=== PATIENT | female | born 1965 | race Caucasian/White ===

== ENCOUNTER 2016-11-27 11:23 | Emergency (ER) | payer MEDICARE ==
[2016-11-27 12:21] LABS: BASOPHILS 0.3 % (0.0-2.0); EOSINOPHILS 6.4 % (0-7); HEMATOCRIT 33.3 % (36.0-48.0); HEMOGLOBIN 10.6 g/dL (12-16); IMMATURE GRANULOCYTES 0.4 % (0-5); LYMPHOCYTES 21.1 % (15-50); MCH 28.8 pg (26.0-34.0); MCHC 31.8 g/dL (31.0-37.0); MCV 90.5 fL (80.0-100.0); MEAN PLATELET VOLUME 9.6 fL (7.4-10.4); MONOCYTES 7.9 % (2-11); NEUTROPHILS 63.9 % (40-80); PLATELET COUNT 343 10x3/uL (130-400); RBC 3.68 10x6/uL (4.00-5.40); RDW 14.2 % (11.5-14.5)
== END 2016-11-27 12:30 | disposition home or self-care (01) ==
LOC: D.ER 11:23
PROVIDERS: Emergency Medicine
DX: T81.4XXA Infection following a procedure, initial encounter (principal); C80.1 Malignant (primary) neoplasm, unspecified; E11.9 Type 2 diabetes mellitus without complications; I10 Essential (primary) hypertension; F17.200 Nicotine dependence, unspecified, uncomplicated

== ENCOUNTER → 2016-12-30 16:23 | Outpatient (CLI) | payer MEDICARE ==
[2016-12-30 17:11] LABS: BASOPHILS 0.3 % (0.0-2.0); EOSINOPHILS 18.8 % (0-7); HEMATOCRIT 24.2 % (36.0-48.0); IMMATURE GRANULOCYTES 0.1 % (0-5); LYMPHOCYTES 23.3 % (15-50); MCH 26.8 pg (26.0-34.0); MCHC 29.8 g/dL (31.0-37.0); MEAN PLATELET VOLUME 9.4 fL (7.4-10.4); NEUTROPHILS 49.5 % (40-80); RBC 2.69 10x6/uL (4.00-5.40); RDW 15.4 % (11.5-14.5); WBC 8.6 10x3/uL (4.8-10.8)
[2016-12-30 17:12] LABS: PLATELET COUNT 417 10x3/uL (130-400)
[2016-12-30 17:16] LABS: CREATININE - SERUM 0.9 mg/dL (0.6-1.3); HEMOGLOBIN 7.2 g/dL (12-16)
== END | disposition home or self-care (01) ==
LOC: D.LABREF 16:23
PROVIDERS: Student in an Organized Health Care Education/Training Program
DX: T81.4XXA Infection following a procedure, initial encounter (principal); T81.31XA Disruption of external operation (surgical) wound, not elsewhere classified, initial encounter

== ENCOUNTER 2017-01-19 06:33 | Emergency (ER) | payer MEDICARE ==
[2017-01-19 08:16] LABS: BASOPHILS 0.3 % (0.0-2.0); EOSINOPHILS 11.3 % (0-7); HEMATOCRIT 29.5 % (36.0-48.0); HEMOGLOBIN 9.1 g/dL (12-16); IMMATURE GRANULOCYTES 0.3 % (0-5); LYMPHOCYTES 20.5 % (15-50); MCH 27.4 pg (26.0-34.0); MCHC 30.8 g/dL (31.0-37.0); MCV 88.9 fL (80.0-100.0); MEAN PLATELET VOLUME 10.2 fL (7.4-10.4); MONOCYTES 12.2 % (2-11); NEUTROPHILS 55.4 % (40-80); RBC 3.32 10x6/uL (4.00-5.40); RDW 16.4 % (11.5-14.5)
[2017-01-19 08:17] LABS: PLATELET COUNT 155 10x3/uL (130-400)
[2017-01-19 08:21] LABS: ALBUMIN 2.9 g/dL (3.4-5.0); ALKALINE PHOSPHATASE 120 U/L (46-116); ALT (SGPT) 21 U/L (10-68); BILIRUBIN - TOTAL 0.32 mg/dL (0.2-1.3); CALC OSMOLALITY 279 mosm/kg (275-300); CALCIUM 8.9 mg/dL (8.5-10.1); CARBON DIOXIDE 29.5 mmol/L (21.0-32.0); CHLORIDE - SERUM 102 mmol/L (98-107); CREATININE - SERUM 0.7 mg/dL (0.6-1.3); GLUCOSE 145 mg/dL (74-106); POTASSIUM - SERUM 4.4 mmol/L (3.5-5.1); PROTEIN - SERUM 6.8 g/dL (6.4-8.2); SODIUM 139 mmol/L (136-145); UREA NITROGEN 10 mg/dL (7-18); eGFR NON AFRICAN AMERICAN > 90 mL/min (90-120)
[2017-01-25 16:12] LABS: AEROBE ID Final report (())
== END 2017-01-19 12:30 | disposition home or self-care (01) ==
LOC: D.ER 06:33
PROVIDERS: Emergency Medicine
DX: G89.18 Other acute postprocedural pain (principal); E11.9 Type 2 diabetes mellitus without complications; I10 Essential (primary) hypertension

== ENCOUNTER 2017-01-28 11:14 | Emergency (ER) | payer MEDICARE ==
[2017-01-28 13:24] LABS: APPEARANCE CLEAR (CLEAR); BILIRUBIN NEGATIVE (NEGATIVE); COLOR YELLOW (YELLOW); GLUCOSE NEGATIVE (NEGATIVE); KETONE NEGATIVE (NEGATIVE); LEUKOCYTE ESTERASE NEGATIVE (NEGATIVE); NITRITE NEGATIVE (NEGATIVE); PROTEIN NEGATIVE (NEGATIVE); UROBILINOGEN NORMAL (NORMAL)
[2017-01-28 13:33] LABS: BASOPHILS 0.5 % (0.0-2.0); EOSINOPHILS 9.1 % (0-7); HEMOGLOBIN 8.3 g/dL (12-16); IMMATURE GRANULOCYTES 0.2 % (0-5); LYMPHOCYTES 17.5 % (15-50); MCH 27.1 pg (26.0-34.0); MCHC 30.7 g/dL (31.0-37.0); MCV 88.2 fL (80.0-100.0); MEAN PLATELET VOLUME 8.2 fL (7.4-10.4); MONOCYTES 9.1 % (2-11); NEUTROPHILS 63.6 % (40-80); RBC 3.06 10x6/uL (4.00-5.40); RDW 16.8 % (11.5-14.5); WBC 6.6 10x3/uL (4.8-10.8)
[2017-01-28 13:46] LABS: PLATELET COUNT 378 10x3/uL (130-400)
[2017-01-28 14:00] LABS: ALBUMIN 2.5 g/dL (3.4-5.0); ALKALINE PHOSPHATASE 129 U/L (46-116); ALT (SGPT) 18 U/L (10-68); CALC OSMOLALITY 278 mosm/kg (275-300); CALCIUM 8.8 mg/dL (8.5-10.1); CARBON DIOXIDE 30.7 mmol/L (21.0-32.0); CHLORIDE - SERUM 101 mmol/L (98-107); CREATININE - SERUM 0.8 mg/dL (0.6-1.3); GLUCOSE 135 mg/dL (74-106); POTASSIUM - SERUM 3.8 mmol/L (3.5-5.1); PROTEIN - SERUM 7.1 g/dL (6.4-8.2); SODIUM 139 mmol/L (136-145); UREA NITROGEN 9 mg/dL (7-18); eGFR NON AFRICAN AMERICAN 80 mL/min (90-120)
[2017-02-04 16:14] LABS: AEROBE ID Final report (())
== END 2017-01-28 18:46 | disposition home or self-care (01) ==
LOC: D.ER 11:14
PROVIDERS: Emergency Medicine; Physician Assistant
DX: G89.18 Other acute postprocedural pain (principal); T81.31XA Disruption of external operation (surgical) wound, not elsewhere classified, initial encounter; E11.9 Type 2 diabetes mellitus without complications; D64.9 Anemia, unspecified; Z85.89 Personal history of malignant neoplasm of other organs and systems; I10 Essential (primary) hypertension

== ENCOUNTER 2019-07-10 10:53 | Outpatient (CLI) | payer MEDICARE ==
[~2019-07-10] VITALS: Ht 170.2 cm; Wt 113.6 kg
[2019-07-10 12:38] VITALS: BP 114/62; Ht 170.2 cm; Wt 113.6 kg
--- NOTE | 2019-07-10 16:50 | NUR ---
PT DC INSTRUCTIONS REVIEWED AT THIS TIME, PT VERBALIZES UNDERSTANDING. [facility] CALLED AT THIS TIME TO [facility]. [facility] STATE THAT THEY WILL BE HERE IN ABOUT 30 MINUTES.
== END 2019-07-10 17:42 ==
LOC: D.OPS 10:53
PROVIDERS: ATTEND Family Medicine
DX: D64.9 Anemia, unspecified (principal); Z51.81 Encounter for therapeutic drug level monitoring; Z79.2 Long term (current) use of antibiotics

== ENCOUNTER 2019-08-02 10:54 | Emergency (ER) | payer MEDICARE ==
[~2019-08-02] VITALS: Ht 170.2 cm; Wt 119.1 kg
[2019-08-02 10:56] VITALS: Ht 170.2 cm; Wt 119.1 kg
[2019-08-02] MEDS ORDERED: MS CONTIN30 MG PO (10:57)
[2019-08-02] MEDS ORDERED: METHADONE5 MG PO (10:57)
[2019-08-02] MEDS ORDERED: KLONOPIN1 MG PO (10:58)
[2019-08-02] MEDS ORDERED: IBUPROFEN800 MG PO (10:58)
[2019-08-02] MEDS ORDERED: ZOFRAN8 MG PO (10:59)
[2019-08-02] MEDS ORDERED: MORPHINE IMMEDI30 M1 PO (10:59)
[2019-08-02] MEDS ORDERED: OMEPRAZOLE40 MG PO (10:59)
[2019-08-02] MEDS ORDERED: MORPHINE SULFAT15 M4 PO (10:59)
[2019-08-02] MEDS ORDERED: NEURONTIN 300300 MG PO (10:59)
[2019-08-02] MEDS ORDERED: ZOLOFT100 MG PO (11:00)
[2019-08-02] MEDS ORDERED: BACLOFEN10 MG PO (11:00)
[2019-08-02] MEDS ORDERED: PHENERGAN25 M1 PO (11:00)
[2019-08-02] MEDS ORDERED: LIPITOR10 MG PO (11:00)
[2019-08-02] MEDS ORDERED: ABILIFY2 MG PO (11:00)
[2019-08-02] MEDS ORDERED: LAMICTAL150 M1 PO (11:01)
[2019-08-02] MEDS ORDERED: WELLBUTRIN SR150 MG PO (11:01)
[2019-08-02 11:50] LABS: BASOPHILS 0.1 % (0-2); EOSINOPHILS 0 % (0-7); HEMATOCRIT 29.6 % (36.0-48.0); HEMOGLOBIN 9.6 g/dL (12-16); IMMATURE GRANULOCYTES 0.2 % (0-5); LYMPHOCYTES 6.8 % (15-50); MCH 26.9 pg (26.0-34.0); MCHC 32.4 g/dL (31.0-37.0); MCV 82.9 fL (80.0-100.0); MONOCYTES 4.5 % (2-11); NEUTROPHILS 88.4 % (40-80); PLATELET COUNT 352 10x3/uL (130-400); RBC 3.57 10x6/uL (4.00-5.40); WBC 8.9 10x3/uL (4.8-10.8)
[2019-08-02 12:02] LABS: ALKALINE PHOSPHATASE 118 U/L (46-116); ALT (SGPT) 13 U/L (10-68); CALC OSMOLALITY 282 mosm/kg (275-300); CARBON DIOXIDE 31.3 mmol/L (21.0-32.0); CHLORIDE - SERUM 103 mmol/L (98-107); CREATININE - SERUM 0.6 mg/dL (0.6-1.3); GLUCOSE 155 mg/dL (74-106); POTASSIUM - SERUM 3.9 mmol/L (3.5-5.1); PROTEIN - SERUM 6.9 g/dL (6.4-8.2); SODIUM 141 mmol/L (136-145); UREA NITROGEN 10 mg/dL (7-18); eGFR NON AFRICAN AMERICAN > 90 mL/min (90-120)
[2019-08-02 12:05] LABS: APPEARANCE CLEAR (CLEAR); BACTERIA MODERATE /hpf (NEGATIVE); BILIRUBIN NEGATIVE (NEGATIVE); COLOR YELLOW (YELLOW); EPITHELIAL CELLS 0-5 /hpf (0-5); GLUCOSE NEGATIVE (NEGATIVE); KETONE LARGE mg/dL (NEGATIVE); MUCUS <1+ /lpf (NONE SEEN); NITRITE NEGATIVE (NEGATIVE); PROTEIN NEGATIVE (NEGATIVE); SPECIFIC GRAVITY 1.005 (1.005-1.020); UROBILINOGEN NORMAL (NORMAL); WHITE CELLS - URINE 0-5 /hpf (NEGATIVE)
[2019-08-02] MEDS ORDERED: LEVAQUIN750 MG PO (14:26)
[2019-08-02 15:25] VITALS: BP 116/82
== END 2019-08-02 15:47 | disposition home or self-care (01) ==
LOC: D.ER 10:54
PROVIDERS: Emergency Medicine
DX: M86.60 Other chronic osteomyelitis, unspecified site (principal); E11.9 Type 2 diabetes mellitus without complications; K21.9 Gastro-esophageal reflux disease without esophagitis

== ENCOUNTER → 2019-08-05 10:24 | Outpatient (CLI) | payer MEDICARE ==
[2019-08-02 10:56] VITALS: BMI 41.1
[~2019-08-05 10:24] MED LIST: ABILIFY2 MG PO; BACLOFEN10 MG PO; IBUPROFEN800 MG PO; KLONOPIN1 MG PO; LAMICTAL150 M1 PO; LEVAQUIN750 MG PO; LIPITOR10 MG PO; METHADONE5 MG PO; MORPHINE IMMEDI30 M1 PO; MORPHINE SULFAT15 M4 PO; MS CONTIN30 MG PO; NEURONTIN 300300 MG PO; OMEPRAZOLE40 MG PO; PHENERGAN25 M1 PO; WELLBUTRIN SR150 MG PO; ZOFRAN8 MG PO; ZOLOFT100 MG PO
[2019-08-05 11:26] LABS: BASOPHILS 0.2 % (0-2); EOSINOPHILS 1.6 % (0-7); HEMATOCRIT 35.4 % (36.0-48.0); HEMOGLOBIN 11.8 g/dL (12-16); IMMATURE GRANULOCYTES 0.2 % (0-5); LYMPHOCYTES 19.8 % (15-50); MCH 27.4 pg (26.0-34.0); MCHC 33.3 g/dL (31.0-37.0); MCV 82.1 fL (80.0-100.0); MEAN PLATELET VOLUME 9.5 fL (7.4-10.4); MONOCYTES 11.6 % (2-11); NEUTROPHILS 66.6 % (40-80); PLATELET COUNT 405 10x3/uL (130-400); RBC 4.31 10x6/uL (4.00-5.40); RDW 16.3 % (11.5-14.5); WBC 11.5 10x3/uL (4.8-10.8)
[2019-08-05 11:50] LABS: ANION GAP 12.1 mmol/L (8-16); CALCIUM 8.8 mg/dL (8.5-10.1); CARBON DIOXIDE 29.3 mmol/L (21.0-32.0); CREATININE - SERUM 0.9 mg/dL (0.6-1.3); VANCOMYCIN - TROUGH 14.9 ug/mL (10.0-20.0)
[2019-08-05 12:02] LABS: POTASSIUM - SERUM 2.4 mmol/L (3.5-5.1)
== END | disposition home or self-care (01) ==
LOC: D.LABREF 10:24
PROVIDERS: ATTEND Internal Medicine Infectious Disease
DX: B95.62 Methicillin resistant Staphylococcus aureus infection as the cause of diseases classified elsewhere (principal)

== ENCOUNTER → 2019-08-06 10:26 | Outpatient (CLI) | payer MEDICARE ==
[2019-08-02 10:56] VITALS: BMI 41.1
[2019-08-06 11:20] LABS: BASOPHILS 0.2 % (0-2); EOSINOPHILS 5.8 % (0-7); HEMATOCRIT 32.4 % (36.0-48.0); HEMOGLOBIN 10.5 g/dL (12-16); IMMATURE GRANULOCYTES 0.3 % (0-5); LYMPHOCYTES 15.7 % (15-50); MCHC 32.4 g/dL (31.0-37.0); MCV 83.3 fL (80.0-100.0); MEAN PLATELET VOLUME 9.9 fL (7.4-10.4); MONOCYTES 8.8 % (2-11); NEUTROPHILS 69.2 % (40-80); PLATELET COUNT 365 10x3/uL (130-400); RBC 3.89 10x6/uL (4.00-5.40); RDW 16.4 % (11.5-14.5); WBC 9.4 10x3/uL (4.8-10.8)
[2019-08-06 11:29] LABS: CALC OSMOLALITY 285 mosm/kg (275-300); CALCIUM 8.9 mg/dL (8.5-10.1); CARBON DIOXIDE 30.4 mmol/L (21.0-32.0); CHLORIDE - SERUM 102 mmol/L (98-107); CREATININE - SERUM 0.8 mg/dL (0.6-1.3); GLUCOSE 150 mg/dL (74-106); SODIUM 141 mmol/L (136-145); UREA NITROGEN 17 mg/dL (7-18); VANCOMYCIN - TROUGH 20.4 ug/mL (10.0-20.0); eGFR NON AFRICAN AMERICAN 79 mL/min (90-120)
[2019-08-06 11:33] LABS: POTASSIUM - SERUM 2.9 mmol/L (3.5-5.1)
== END | disposition home or self-care (01) ==
LOC: D.LABREF 10:26
PROVIDERS: ATTEND Family Medicine
DX: C49.9 Malignant neoplasm of connective and soft tissue, unspecified (principal); Z89.622 Acquired absence of left hip joint; E87.6 Hypokalemia; B95.8 Unspecified staphylococcus as the cause of diseases classified elsewhere

== ENCOUNTER → 2019-08-13 11:28 | Outpatient (CLI) | payer MEDICARE ==
[2019-08-02 10:56] VITALS: BMI 41.1
[2019-08-13 12:00] LABS: BASOPHILS 0.1 % (0-2); EOSINOPHILS 4.4 % (0-7); HEMATOCRIT 28.9 % (36.0-48.0); HEMOGLOBIN 8.8 g/dL (12-16); IMMATURE GRANULOCYTES 0.1 % (0-5); LYMPHOCYTES 13.6 % (15-50); MCH 26.4 pg (26.0-34.0); MCHC 30.4 g/dL (31.0-37.0); MCV 86.8 fL (80.0-100.0); MEAN PLATELET VOLUME 9.7 fL (7.4-10.4); MONOCYTES 10.3 % (2-11); NEUTROPHILS 71.5 % (40-80); PLATELET COUNT 324 10x3/uL (130-400); RBC 3.33 10x6/uL (4.00-5.40); RDW 16.6 % (11.5-14.5)
[2019-08-13 12:18] LABS: CALC OSMOLALITY 276 mosm/kg (275-300); CALCIUM 8.9 mg/dL (8.5-10.1); CHLORIDE - SERUM 103 mmol/L (98-107); CREATININE - SERUM 0.7 mg/dL (0.6-1.3); GLUCOSE 106 mg/dL (74-106); POTASSIUM - SERUM 4.3 mmol/L (3.5-5.1); SODIUM 139 mmol/L (136-145); UREA NITROGEN 9 mg/dL (7-18); VANCOMYCIN - TROUGH 15.4 ug/mL (10.0-20.0); eGFR NON AFRICAN AMERICAN > 90 mL/min (90-120)
== END | disposition home or self-care (01) ==
LOC: D.LABREF 11:28
PROVIDERS: ATTEND Internal Medicine Infectious Disease
DX: T87.44 Infection of amputation stump, left lower extremity (principal)

== ENCOUNTER → 2019-08-20 10:14 | Outpatient (CLI) | payer MEDICARE ==
[2019-08-02 10:56] VITALS: BMI 41.1
[2019-08-20 10:57] LABS: BASOPHILS 0.3 % (0-2); EOSINOPHILS 5.9 % (0-7); HEMATOCRIT 27.5 % (36.0-48.0); IMMATURE GRANULOCYTES 0.3 % (0-5); LYMPHOCYTES 15.9 % (15-50); MCH 25.6 pg (26.0-34.0); MCHC 29.1 g/dL (31.0-37.0); MCV 88.1 fL (80.0-100.0); MEAN PLATELET VOLUME 9.6 fL (7.4-10.4); MONOCYTES 7.6 % (2-11); PLATELET COUNT 386 10x3/uL (130-400); RBC 3.12 10x6/uL (4.00-5.40); RDW 16.8 % (11.5-14.5); WBC 7.5 10x3/uL (4.8-10.8)
[2019-08-20 11:02] LABS: CALC OSMOLALITY 283 mosm/kg (275-300); CARBON DIOXIDE 29.4 mmol/L (21.0-32.0); CHLORIDE - SERUM 104 mmol/L (98-107); CREATININE - SERUM 0.7 mg/dL (0.6-1.3); POTASSIUM - SERUM 4.7 mmol/L (3.5-5.1); SODIUM 141 mmol/L (136-145); UREA NITROGEN 11 mg/dL (7-18); eGFR NON AFRICAN AMERICAN > 90 mL/min (90-120)
[2019-08-20 11:04] LABS: GLUCOSE 168 mg/dL (74-106)
== END | disposition home or self-care (01) ==
LOC: D.LABREF 10:14
PROVIDERS: ATTEND Internal Medicine Infectious Disease
DX: M86.60 Other chronic osteomyelitis, unspecified site (principal)

== ENCOUNTER 2020-04-11 09:00 | Outpatient (CLI) | payer MEDICARE ==
[2019-08-02 10:56] VITALS: BMI 41.1
== END 2020-04-11 10:00 | disposition home or self-care (01) ==
LOC: D.MAMMO 09:00
PROVIDERS: ATTEND Family Medicine
DX: Z12.31 Encounter for screening mammogram for malignant neoplasm of breast (principal)

== ENCOUNTER 2021-02-16 15:36 | Inpatient (IN) | payer MEDICARE ==
[~2021-02-16] VITALS: Ht 170.2 cm; Wt 131.5 kg
[~2021-02-16 15:36] MED LIST changes: +GLUCOPHAGE500 MG PO; +MS CONTIN15 MG PO; +REGLAN10 MG PO
[2021-02-16 16:11] LABS: BASOPHILS 0.1 % (0-2); EOSINOPHILS 0.1 % (0-7); HEMATOCRIT 35.7 % (36.0-48.0); HEMOGLOBIN 11.6 g/dL (12-16); IMMATURE GRANULOCYTES 0.4 % (0-5); LYMPHOCYTE ABS# 0.71 10x3/uL (1.18-3.74); LYMPHOCYTES 9.5 % (15-50); MCH 28.4 pg (26.0-34.0); MCHC 32.5 g/dL (31.0-37.0); MCV 87.5 fL (80.0-100.0); MEAN PLATELET VOLUME 9.5 fL (7.4-10.4); MONOCYTES 4.4 % (2-11); NEUTROPHIL ABS# 6.37 10x3/uL (1.56-6.13); NEUTROPHILS 85.5 % (40-80); RBC 4.08 10x6/uL (4.00-5.40); WBC 7.5 10x3/uL (4.8-10.8)
[2021-02-16 16:12] LABS: PLATELET COUNT 270 10x3/uL (130-400)
[2021-02-16 16:23] LABS: CALC OSMOLALITY 275 mosm/kg (275-300); CALCIUM 9.2 mg/dL (8.5-10.1); CARBON DIOXIDE 27.6 mmol/L (21.0-32.0); CHLORIDE - SERUM 99 mmol/L (98-107); CREATININE - SERUM 0.9 mg/dL (0.6-1.3); GLUCOSE 183 mg/dL (74-106); POTASSIUM - SERUM 3.6 mmol/L (3.5-5.1); SODIUM 136 mmol/L (136-145); UREA NITROGEN 11 mg/dL (7-18); eGFR NON AFRICAN AMERICAN 69 mL/min (90-120)
[2021-02-16 16:32] LABS: ALBUMIN 3.3 g/dL (3.4-5.0); ALKALINE PHOSPHATASE 148 U/L (30-120); ALT (SGPT) 23 U/L (10-68); AMYLASE - SERUM 14 U/L (25-115); BILIRUBIN - TOTAL 0.35 mg/dL (0.2-1.3); PROTEIN - SERUM 7.6 g/dL (6.4-8.2)
[2021-02-16 16:33] LABS: LIPASE 34 U/L (73-393); TROPONIN-I < 0.017 ng/mL (0.000-0.060)
[2021-02-16 17:00] LABS: BILIRUBIN NEGATIVE (NEGATIVE); KETONE MODERATE mg/dL (NEGATIVE); NITRITE NEGATIVE (NEGATIVE); UROBILINOGEN NORMAL mg/dL (< 2)
[2021-02-17 01:55] VITALS: BP 175/92; BMI 45.5
[2021-02-17 03:43] VITALS: BP 140/85
--- NOTE | 2021-02-17 04:58 | NUR ---
C/O NAUSEA NO EMESIS CALL PLACED TO DR. DAILY NEW ORDERS REC'D.0030) ZOFRAN 4MG GIVEN PO ORDERED.0330) STATES FEELS BETTER NAUSEA STILL NO EMESIS.SOAP SUDS ENEMA GIVEN 500ML X2 REQESTING TO TAKE A BREAK STATES TIRED.LGE AMT SOFT FORMED STOOL RESULTS AT PRESENT TIME NOT CLEAR YET.
[2021-02-17 05:50] LABS: BASOPHILS 0.1 % (0-2); EOSINOPHILS 0 % (0-7); HEMOGLOBIN 11.1 g/dL (12-16); IMMATURE GRANULOCYTES 0.3 % (0-5); LYMPHOCYTE ABS# 0.97 10x3/uL (1.18-3.74); LYMPHOCYTES 10.4 % (15-50); MCH 28.1 pg (26.0-34.0); MCHC 32.6 g/dL (31.0-37.0); MCV 86.1 fL (80.0-100.0); MONOCYTES 7.9 % (2-11); NEUTROPHIL ABS# 7.62 10x3/uL (1.56-6.13); NEUTROPHILS 81.3 % (40-80); PLATELET COUNT 299 10x3/uL (130-400); RBC 3.95 10x6/uL (4.00-5.40)
[2021-02-17 06:07] LABS: CALC OSMOLALITY 272 mosm/kg (275-300); CALCIUM 8.7 mg/dL (8.5-10.1); CARBON DIOXIDE 28.6 mmol/L (21.0-32.0); CHLORIDE - SERUM 98 mmol/L (98-107); CREATININE - SERUM 0.8 mg/dL (0.6-1.3); GLUCOSE 171 mg/dL (74-106); POTASSIUM - SERUM 3.6 mmol/L (3.5-5.1); SODIUM 135 mmol/L (136-145); UREA NITROGEN 11 mg/dL (7-18); eGFR NON AFRICAN AMERICAN 79 mL/min (90-120)
[2021-02-17 06:10] LABS: WBC 9.4 10x3/uL (4.8-10.8)
--- NOTE | 2021-02-17 07:45 | NUR ---
ALERT AND ORIENTED. ASSESSMENT COMPLETE. DENIES NEEDS. BED LOW. CALL PERALTA AND PERSONAL ITEMS IN REACH. WILL CONTINUE TO MONITOR.
--- NOTE | 2021-02-17 08:00 | NUR ---
SPOKE WITH DR PERKINS TO CLARIFY THAT NURSE SHOULD STILL BE DOING ENEMAS. STATES TO CONTINUE ENEMAS D/T PATIENT STILL CONSTIPATED.
--- NOTE | 2021-02-17 08:34 | NUR ---
SOAP SUDS ENEMA INITIATED.
[2021-02-17 09:04] VITALS: BP 166/77
--- NOTE | 2021-02-17 09:30 | NUR ---
COMPLETED ENEMAS 1500 CC. STOOL IS NOW LIQUID WITH FLAKES AND A FEW SMALL PARTICLES.
--- NOTE | 2021-02-17 09:40 | NUR ---
PATIENT TOLERATED 1000CC ENEMA. ONLY SMALL FLAKES OF STOOL NOTED. STATES WANTS TO TAKE A BREAK.
--- NOTE | 2021-02-17 09:48 | NUR ---
AFTER SCANNING PATIENT'S MEDICATIONS AND HANDING MED CUP TO PATIENT, PATIENT STATES IS UNABLE TO TAKE MEDS AT THIS TIME. WANTS TO TRY AGAIN LATER. MED CUP LOCKED UP IN CASSET.
--- NOTE | 2021-02-17 11:57 | NUR ---
PATIENT NAUSEAS AND THREW UP. UNABLE TO GIVE ZOFRAN D/T NOT TIME YET. STATES UNABLE TO TOLERATE MORE ENEMA AT THIS TIME OR PO MEDICATIONS.
[2021-02-17 12:31] VITALS: BP 168/61
--- NOTE | 2021-02-17 12:51 | NUR ---
SPOKE WITH DR PERKINS AGAIN ABOUT WHETHER OR NOT NURSE NEEDS TO CONTINUE ENEMAS D/T PATIENT'S KUB FROM THIS AM SHOWS NO EVIDENCE OF CONSTIPATION OR FECAL MATTER. STATES TO STOP ENEMAS.
[2021-02-17 12:55] VITALS: Ht 170.2 cm; Wt 131.5 kg
[2021-02-17 15:59] VITALS: BP 163/80
[2021-02-17 20:00] VITALS: BP 176/103
--- NOTE | 2021-02-18 04:49 | NUR ---
I have reviewed this patient and I concur with the Shift Assessment completed by the Licensed Practical Nurse today this shift.
--- NOTE | 2021-02-18 07:15 | NUR ---
REC'D IN BED AWAKE AND ALERT. RESP EVEN AND UNLABORED WITH NO DISTRESS NOTED. CAN EXPRESS NEEDS AND WANTS. NO C/O NOTED OR VOICED AT THIS TIME. ASSESSMENT COMPLETED. C/L IN REACH AT BEDSIDE.
[2021-02-18 08:44] VITALS: BP 169/86
[2021-02-18] MEDS ORDERED: AMITIZA24 MCG PO (11:37)
[2021-02-18 14:00] VITALS: BP 157/104
--- NOTE | 2021-02-18 14:36 | NUR ---
DC HOME AT THIS TIME WITH ALL PERSONAL BELONGING. VOICE UNDERSTANDING OF DC ORDERS. STABLE CONDITION UPON DEPARTURE.
== END 2021-02-18 14:37 | disposition home or self-care (01) | DRG 392 ==
LOC: D.ER 15:36 → D.MS 18:54 → OBSVTIME 18:56 → D.MS 02-17 16:49
PROVIDERS: Emergency Medicine; ADMIT Family Medicine; ATTEND Family Medicine
DX: K59.03 Drug induced constipation (principal); T40.2X5A Adverse effect of other opioids, initial encounter; E11.43 Type 2 diabetes mellitus with diabetic autonomic (poly)neuropathy; K31.84 Gastroparesis; C80.1 Malignant (primary) neoplasm, unspecified

== ENCOUNTER → 2021-03-17 15:15 | Outpatient (CLI) | payer MEDICARE ==
[2021-02-17 12:55] VITALS: BMI 45.4
[~2021-03-17 15:15] MED LIST changes: +AMITIZA24 MCG PO
== END | disposition home or self-care (01) ==
LOC: D.CT 03-16 15:30
PROVIDERS: ATTEND Family Medicine
DX: I73.9 Peripheral vascular disease, unspecified (principal)